=== PATIENT | male | born 1955 | race Caucasian/White ===

== ENCOUNTER 2023-12-09 07:06 | Day surgery (SDC) | payer OTHER ==
[2023-11-29 13:29] LABS: BILIRUBIN,URINE NEGATIVE (Neg); CLARITY,URINE CLEAR (Clear); COLOR,URINE YELLOW (Yellow); GLUCOSE, URINE NEGATIVE (Neg); KETONES,URINE NEGATIVE (Neg); LEUKOCYTE ESTERASE ,URINE NEGATIVE (Neg); NITRITES, URINE NEGATIVE (Neg); OCCULT BLOOD,URINE NEGATIVE (Neg); PH,URINE 5.5 (4.8-8.0); PROTEIN,URINE NEGATIVE (Neg); UROBILINOGEN,URINE 0.2 E.U/dL (0.2-1.0)
[2023-11-29 13:29] LABS: BASOPHILS % (AUTO) 0.4 % (0-1); EOSINOPHILS # (AUTO) 0.4 X10'3 (0-0.9); EOSINOPHILS % (AUTO) 5.1 % (0-6); LYMPHOCYTES # (AUTO) 2.4 X10'3 (1.1-4.8); LYMPHOCYTES % (AUTO) 27.9 % (21-51); MEAN CORPUSCULAR HEMOGLOBIN 28.7 PG (27.0-31.0); MEAN CORPUSCULAR HGB CONC 33.5 g/dL (33.0-36.5); MEAN CORPUSCULAR VOLUME 85.8 FL (78-98); MEAN PLATELET VOLUME 8.9 FL (7.4-10.4); MONOCYTES # (AUTO) 0.9 X10'3 (0-0.9); MONOCYTES % (AUTO) 10.9 % (2-12); NEUTROPHILS # (AUTO) 4.8 X10'3 (1.8-7.7); NEUTROPHILS % (AUTO) 55.7 % (42-75); PRE OP HEMATOCRIT 45.4 % (42.0-52.0); PRE OP HEMOGLOBIN 15.2 g/dL (14.0-17.9); PRE OP PLATELET COUNT 230 X10'3 (140-440); PRE OP WHITE BLOOD COUNT 8.7 10'3 (4.8-10.8); RED CELL DISTRIBUTION WIDTH 13.6 % (11.5-14.5)
[2023-11-29 13:30] LABS: UA COLLECTION TYPE CLN CATCH MIDSTREAM
[2023-11-29 13:45] LABS: ALBUMIN 3.5 G/DL (3.4-5.0); ALBUMIN/GLOBULIN RATIO 0.9 (1.1-1.5); ALKALINE PHOSPHATASE 62 IU/L (46-116); BLOOD UREA NITROGEN 22 MG/DL (7-18); BUN/CREATININE RATIO 20.8 (10.0-20.0); CALCIUM 9.7 MG/DL (8.5-10.1); CHLORIDE 108 MMOL/L (99-107); CREATININE 1.06 MG/DL (0.60-1.10); PRE OP ALT 34 U/L (30-65); PRE OP ANION GAP 7 (8-16); PRE OP AST 19 U/L (10-37); PRE OP BILIRUB, TOTAL 0.8 MG/DL (0.0-1.0); PRE OP GLUCOSE 106 MG/DL (70-104); PRE OP POTASSIUM 4.1 MMOL/L (3.4-5.1); PRE OP SODIUM 143 MMOL/L (135-145); TOTAL CARBON DIOXIDE 27.7 MMOL/L (24-32); TOTAL PROTEIN 7.6 G/DL (6.4-8.2); eGFR 69 ML/MIN
[2023-11-29 14:45] LABS: PRE OP INR 1.1 INR; PRE OP PROTIME 11.5 SECONDS (9.0-12.0)
[2023-12-09] VITALS (25 sets, daily range): BP systolic 95–128; BP diastolic 58–82; PULSE 55–96; RESP 14–18; TEMP 97–98.4; O2SAT 92–99
[~2023-12-09] VITALS: Ht 190.5 cm; Wt 123.8 kg
[2023-12-09] MEDS: ceFAZolin inj. 3,000 MG in normal saline 100ml IV soln 100 ML IV ONE (05:30)
[2023-12-09] MEDS: tranexamic acid inj. 1,000 MG in normal saline IV soln 100ML IV ONE (05:30)
[~2023-12-09 07:06] MED LIST: APIX5TAB3 PO; CHOL20003 PO; DILT240C88 PO; FLAXSEED OIL; LOSA-422 PO; ROSU40TA22 PO
[2023-12-09] MEDS: famotidine 20mg tablet PO ONE (08:16)
[2023-12-09] MEDS: ringers solution, lacted 1,000 ML IV SCH ×2 (08:16→09:50)
[2023-12-09] MEDS ORDERED: hydrALAZINE 20mg/ml inj. IV PRN (09:50)
[2023-12-09] MEDS ORDERED: morphine 2 MG/ML inj. syringe IV PRN (09:50)
[2023-12-09] MEDS ORDERED: labetalol 20mg/4ml (5mg/ml) syringe IV PRN (09:50)
[2023-12-09] MEDS: acetaminophen 1,000mg/100ml IV 100 ML IV ONE (09:50)
[2023-12-09] MEDS ORDERED: proCHLORperazine 10 MG/2 ml inj IV PRN (09:50)
[2023-12-09] MEDS ORDERED: ondansetron/PF 4mg/2ml inj IV PRN (09:50)
[2023-12-09] MEDS ORDERED: morphine 4 MG/ML inj SYRINge IV PRN (09:50)
[2023-12-09] MEDS ORDERED: meperidine/PF 25mg/ml syringe IV PRN ×3 (09:50)
[2023-12-09] MEDS ORDERED: acetaminophen 325mg tablet PO PRN (10:00)
[2023-12-09] MEDS ORDERED: naloxone 0.4 mg/ml inj IV PRN (10:00)
[2023-12-09] MEDS ORDERED: HYDROcodone/acetaminophen 5mg/325mg tablet PO PRN (10:00)
[2023-12-09] MEDS ORDERED: bisacodyl 10mg suppository rectal RC PRN (10:00)
[2023-12-09] MEDS ORDERED: diphenhydrAMINE 25mg capsule PO PRN (10:00)
[2023-12-09] MEDS ORDERED: magnesium hydroxide 30ml (MOM) UD suspension PO PRN (10:00)
[2023-12-09] MEDS ORDERED: Thrombin (Bovine) 5,000 unit vial TP ONE (10:17)
[2023-12-09] MEDS ORDERED: gelatin sponge, absorbable (Gelfoam 100) sponge TP ONE (10:17)
[2023-12-09] MEDS ORDERED: sevoflurane 250ml liquid IH ONE (10:32)
[2023-12-09] MEDS ORDERED: fentaNYL/PF 50MCG/1 ML 2ML syringe ONE (10:36)
[2023-12-09] MEDS ORDERED: ondansetron/PF 4mg/2ml inj ONE (11:18)
[2023-12-09] MEDS ORDERED: rocuronium 10mg/ml inj IV ONE (11:18)
[2023-12-09] MEDS ORDERED: midazolam 1 mg/ML 2ml injection ONE (11:18)
[2023-12-09] MEDS ORDERED: ePHEDrine 50MG/ML INJ. ONE (11:18)
[2023-12-09] MEDS ORDERED: 0.9 % SODIUM CHLORIDE 10 ML VIAL ONE (11:18)
[2023-12-09] MEDS ORDERED: LIDOcaine 2% (20mg/ml) 5ml vial ONE (11:18)
[2023-12-09] MEDS ORDERED: ROPIVAcaine 0.5% (5mg/ml) 30ml vial ONE (11:19)
[2023-12-09] MEDS ORDERED: LIDOcaine 1%/PF 5ML 10 MG/ML VIAL ONE (11:19)
[2023-12-09] MEDS ORDERED: dexamethasone sod phosphate 4mg/ml inj. ONE (11:19)
[2023-12-09] MEDS ORDERED: propofol inj 20 ML IV ONE (11:19)
[2023-12-09] MEDS ORDERED: morphine 10mg/ml inj. ONE (12:12)
[2023-12-09] MEDS ORDERED: glycopyrrolate 0.2mg/ml inj ONE (13:02)
[2023-12-09] MEDS ORDERED: neostigmine methylsulfate 1 MG/ML 10ml vial ONE (13:02)
[2023-12-09] MEDS: potassium cl 20mEq in 1/2 NS 1,000 ML IV SCH (16:44)
[2023-12-09] MEDS: ondansetron/PF 4mg/2ml inj IV PRN (18:58)
[2023-12-09] MEDS: cefazolin 2gm/D5W 100mL 100 ML IV SCH (18:59)
[2023-12-09] MEDS: diltiazem CD 120mg capsule (once-daily) PO SCH (20:28)
[2023-12-09] MEDS: apixaban 5mg tablet PO SCH (20:28)
[2023-12-09] MEDS: cholecalciferol (vitamin D3) 1,000 unit (25mcg) tablet PO SCH (20:28)
[2023-12-10 02:00] VITALS: BP 112/62; PULSE 79; RESP 16; TEMP 98; O2SAT 93
[2023-12-10] MEDS: HYDROcodone/acetaminophen 5mg/325mg tablet PO PRN (05:19)
[2023-12-10 06:00] VITALS: BP 105/60; PULSE 69; RESP 17; TEMP 98.4; O2SAT 95
[2023-12-10] MEDS: atorvastatin 20mg tablet PO SCH (07:34)
[2023-12-10] MEDS: HYDROchlorothiazide 12.5mg capsule PO SCH (07:34)
[2023-12-10 07:35] VITALS: BP_SYST 104; PULSE 68
[2023-12-10] MEDS: losartan 50mg tablet PO SCH (07:35)
[2023-12-10 08:00] VITALS: RESP 17; O2SAT 95
[2023-12-10 09:04] LABS: BASOPHILS % (AUTO) 0.1 % (0-1); EOSINOPHILS % (AUTO) 0 % (0-6); LYMPHOCYTES # (AUTO) 1.2 X10'3 (1.1-4.8); LYMPHOCYTES % (AUTO) 6.8 % (21-51); MEAN CORPUSCULAR HEMOGLOBIN 28.2 PG (27.0-31.0); MEAN CORPUSCULAR HGB CONC 32.6 g/dL (33.0-36.5); MEAN CORPUSCULAR VOLUME 86.6 FL (78-98); MONOCYTES # (AUTO) 1.1 X10'3 (0-0.9); MONOCYTES % (AUTO) 6.4 % (2-12); NEUTROPHILS % (AUTO) 86.7 % (42-75); PLATELET COUNT 209 X10'3 (140-440); RED BLOOD COUNT 4.97 X10'6 (4.70-6.10); RED CELL DISTRIBUTION WIDTH 13.8 % (11.5-14.5); WHITE BLOOD COUNT 17.3 X10'3 (4.5-11.0)
[2023-12-10 09:30] LABS: ANION GAP 14 (8-16); CHLORIDE 103 MMOL/L (99-107); POTASSIUM 4.5 MMOL/L (3.5-5.1); SODIUM 139 MMOL/L (135-145); TOTAL CARBON DIOXIDE 22.2 MMOL/L (24-32)
== END 2023-12-10 11:00 | disposition home or self-care (01) ==
LOC: PAS 07:06 → UNDOADMIN 07:06 → PAS IN 07:06 → EDSTATUS 07:30 → ORTHO 4S 12:00 → PAS IN 14:20 → UNDODISIN 12-10 11:00 → PAS 12-10 11:00
PROVIDERS: ATTEND Specialist
DX: M19.011 Primary osteoarthritis, right shoulder (principal); I10 Essential (primary) hypertension; E78.5 Hyperlipidemia, unspecified; I48.91 Unspecified atrial fibrillation; Z79.01 Long term (current) use of anticoagulants; Z79.899 Other long term (current) drug therapy
CPT/HCPCS: 23430; 23472; 36415; 71045; 73030; 80051; 80053; 81003; 82948; 85025; 85610; 85730; 86885; 86900; 86901; 87081; 97110; 97116; 97161; 97530; C1716; J0690; J0735; J1100; J2250; J2274; J2405; J2704; J2710; J2795; J3010; J3480; J3490; J7030; J7120; Z7506; Z7508; Z7512; 76000; A4565; A4615; A4618; A6449; A6455; A7000; C1758; G0378